=== PATIENT | male | born 1975 | race Two or more races ===

== ENCOUNTER 2025-07-29 23:48 | Emergency (ER) | payer MEDICAID, SELFPAY ==
[2025-07-29 23:55] VITALS: BP 160/99; PULSE 103; RESP 18; TEMP 36.9; O2SAT 99
--- NOTE | 2025-07-30 00:34 | EKG_ITS ---
[facility] [place] [facility] Test Date: 2025-07-30 Pat Name: BRITTNEY TAYLOR Department: Room: - Gender: Male Behavior Interventionist: : 1975 Requested By: Margaret Cat Order Number: [id number] Reading MD: Margaret Cat Measurements Intervals [place] Rate: 100 P: 72 NE: 155 QRS: 74 QRSD: 84 T: 75 QT: 308 QTc: 397 Interpretive Statements SINUS TACHYCARDIA NONSPECIFIC T-WAVE ABNORMALITY ABNORMAL RHYTHM ECG No previous ECG available for comparison /[id number]/[email or web address]/[id number]
--- NOTE | 2025-07-30 00:34 | XR_ITS ---
EXAMINATION: PA chest single view TECHNIQUE: Upright PA chest single view Date and time: July 30, 2025, 0230 hours INDICATION: Coughing shortness of breath today. FINDINGS: Normal heart size. Lungs are clear. Intact osseous structures IMPRESSION: No active disease
--- NOTE | 2025-07-30 00:34 | PD.EDRME ---
Rapid Medical Screening Exam RME Arrival date/time: 07/29/25 23:48 This is a case of 49-year-old male with history of diabetes hypertension came in with chest pain history of present illness started 1 week prior to arrival in the emergency room patient have cough and nasal congestion persistence of the symptoms now with chest pain shortness of breath this patient decided to start consulted in the emergency room Chief Complaint: Flu Like Symptoms Time Seen by Provider: 07/30/25 00:03 Vital signs: Vital Signs Temperature 98.5 F 07/29/25 23:55 Pulse Rate 103 H 07/29/25 23:55 Respiratory Rate 18 07/29/25 23:55 Blood Pressure 160/99 H 07/29/25 23:55 Pulse Oximetry (%) 99 07/29/25 23:55 Oxygen Delivery Method Room Air 07/29/25 23:55 Exam: Normal rate regular rhythm no murmur clear breath sounds Clinical Impression: Chest pain
[2025-07-30 01:15] LABS: Collection Type, Urine Voided
[2025-07-30 01:20] LABS: Basophils # (Auto) 0.0 Thou/mm3 (0.0-0.2); Basophils % (Auto) 0 % (0-2.5); Eosinophils # (Auto) 0.2 Thou/mm3 (0.0-0.5); Eosinophils % (Auto) 2 % (0-10); Hematocrit 42.9 % (41.0-53.0); Hemoglobin 14.1 g/dL (13.5-16.0); Immature Granulocytes Auto 0.02 Thou/mm3 (0.00-0.00); Lymphocytes # (Auto) 1.3 Thou/mm3 (1.0-4.8); Lymphocytes % (Auto) 16 % (10-50); Mean Corpuscular HGB Conc 32.9 g/dl (31.0-37.0); Mean Corpuscular Hemoglobin 28.5 pg (25.0-35.0); Mean Corpuscular Volume 87 fL (80-100); Monocytes # (Auto) 0.6 Thou/mm3 (0.0-0.8); Monocytes % (Auto) 8 % (0-12); Neutrophils # (Auto) 5.6 Thou/mm3 (1.8-7.7); Neutrophils % (Auto) 73 % (37-80); Nucleated Red Blood Cell # 0.00 Thou/mm3 (0.00-0.00); Nucleated Red Blood Cell % 0 /100 WBC (0); Platelet Count 216 Thou/mm3 (140-440); RDW Standard Deviation 42.9 fL (35.1-43.9); Red Blood Count 4.95 Miln/mm3 (4.50-5.90); White Blood Count 7.7 Thou/mm3 (3.8-10.6)
[2025-07-30 01:33] LABS: Bacteria,Urine Rare; Bilirubin,Urine Negative (Negative); Blood,Urine Negative (Negative); Clarity,Urine Clear (Clear/Hazy); Color,Urine Yellow (Lt Yel-Yel); Glucose, Urine 4+ (Negative); Ketones,Urine Negative (Negative); Leukocyte Esterase,Urine Negative (Negative); Nitrite,Urine Negative (Negative); PH,Urine 6.0 (5.0-7.0); Protein,Urine Negative (Neg - Trace); RBC,Urine 1 /hpf (0-3); Specific Gravity,Urine 1.030 (1.001-1.035); Squamous Epithelial Cell,Urine 2 /hpf (0-5); Urobilinogen,Urine 4.0 mg/dL (0.0-1.0); WBC,Urine 1 /hpf (0-5)
[2025-07-30 01:38] LABS: B-Type Natriuretic Peptide 60 pg/mL (0-100)
[2025-07-30 01:42] LABS: Alanine Aminotransferase 21 U/L (10-49); Albumin, Serum 4.2 gm/dL (3.5-5.0); Albumin/Globulin Ratio 1.6 (1.2-2.2); Alkaline Phosphatase 105 U/L (46-116); Anion Gap 9 (7-16); Aspartate Amino Transferase 23 U/L (0-34); BUN/Creatinine Ratio 7 Ratio (12-20); Bilirubin,Total 0.5 mg/dL (0.3-1.2); Blood Urea Nitrogen 7 mg/dL (9-23); Calcium 8.8 mg/dL (8.3-10.6); Calcium (Corrected) 8.8 mg/dL (8.5-10.1); Carbon Dioxide 28.3 mMol/L (20.0-31.0); Chloride 105 mMol/L (98-107); Creatinine (Component) 1.0 mg/dL (0.6-1.3); Globulin 2.6 gm/dL (2.3-3.5); Glucose 232 mg/dL (74-106); Osmolality,Calculated 288 (275-295); Potassium 4.1 mMol/L (3.4-5.1); Sodium 142 mMol/L (136-145); Total Protein 6.8 gm/dL (5.7-8.2); Troponin I < 0.020 ng/mL (0.0-0.045); eGFR > 60 See Note
[2025-07-30 02:53] VITALS: BP 178/107; PULSE 98; RESP 20; TEMP 37.3; O2SAT 99
--- NOTE | 2025-07-30 02:54 | PD.EDCHEST ---
ED Chest Pain RME/HPI General Chief Complaint: Flu Like Symptoms Stated Complaint: BODYACHES,COUGH Time Seen by Provider: 07/30/25 00:03 Arrival date/time: 07/29/25 23:48 This is a case of 49-year-old male with history of diabetes hypertension came in with chest pain history of present illness started 1 week prior to arrival in the emergency room patient have cough and nasal congestion persistence of the symptoms now with chest pain shortness of breath this patient decided to start consulted in the emergency room Limitations: no limitations RME / HPI RME / HPI narrative: 07/29/25 23:48 This is a case of 49-year-old male with history of diabetes hypertension came in with chest pain history of present illness started 1 week prior to arrival in the emergency room patient have cough and nasal congestion persistence of the symptoms now with chest pain shortness of breath this patient decided to start consulted in the emergency room Exam: Normal rate regular rhythm no murmur clear breath sounds Impression: Chest pain Related Data Previous Rx's ?Medication ?Instructions ?Recorded albuterol sulfate 90 mcg/actuation 1 puff inhalation Q4H PRN 07/30/25 aerosol inhaler (Ventolin HFA) shortness of breath or wheezing #8.5 grams benzonatate 200 mg capsule 200 mg PO BID PRN cough #20 caps 07/30/25 oseltamivir 75 mg capsule (Tamiflu) 75 mg PO BID 5 days #10 caps 07/30/25 Allergies Allergy/AdvReac Type Severity Reaction Status Date / Time No Known Allergies Allergy Verified 07/29/25 23:49 Review of Systems Review of Systems Systems Reviewed: All systems reviewed, normal except as documented Past Medical History Past Medical History CARDIAC: Negative Congestive Heart Failure RESPIRATORY: Negative Chronic Obstructive Pulmonary Disease (COPD) GENITOURINARY: Negative Renal Disease ENDOCRINE: Positive Diabetes Mellitus Type 2; Negative Diabetes Mellitus Type 1 Social History SMOKING STATUS: Never smoker SUBSTANCE USE: methamphetamine (Almost daily) ED Exam General Limitations: Present no limitations General appearance: Present alert, in no apparent distress and other (Patient is awake alert oriented not in distress nontoxic looking well-hydrated well-nourished) Head Head exam: Present atraumatic, normocephalic and normal inspection Eye Eye exam: Present normal appearance, PERRL and EOMI ENT ENT exam: Present normal exam, normal oropharynx, mucous membranes moist and other (HEENT exam is normal and unremarkable) Neck Neck exam: Present normal inspection, full ROM, trachea midline and other (Negative for meningeal sign); Absent tenderness, meningismus, lymphadenopathy or thyromegaly Chest Chest inspection: Present normal inspection and symmetric chest wall rise; Absent tenderness Respiratory Respiratory exam: Present normal lung sounds bilaterally and wheezes (Wheezing both lower lung field no crackles no rales no retraction no stridor); Absent respiratory distress, stridor, accessory muscle use or prolonged expiratory phase Cardiovascular Cardiovascular exam: Present regular rate, normal rhythm and normal heart sounds; Absent bradycardia, tachycardia, irregular rhythm, systolic murmur or diastolic murmur Abdominal Exam Abdominal exam: Present soft and normal bowel sounds Extremities Exam Extremities exam: Present normal inspection and full ROM Back Exam Back exam: Present normal inspection and full ROM Neurological Exam Neurological exam: Present alert, oriented X3, CN II-XII intact, normal gait and reflexes normal; Absent motor sensory deficit Psychiatric Psychiatric exam: Present normal affect and normal mood Skin Skin exam: Present warm, dry, intact, normal color and other (Excellent skin turgor) Course Quality Measures none Orders Category Date Time Status Bedside COVID-19 Antigen Test NOW Care 07/29/25 23:51 Active Bedside Influenza A&B Antigen Test NOW Care 07/29/25 23:58 Completed EKG (ED ONLY) *Do not use* NOW Care 07/30/25 00:34 Completed EKG (ED Only) Stat Exams 07/30/25 00:34 Draft XR chest 1V Stat Exams 07/30/25 00:34 Taken BNP [B-Type Natriuretic Peptide] Stat Lab 07/30/25 00:58 Completed CBC Stat Lab 07/30/25 00:58 Completed CMP [Comprehensive Metabolic Panel] Stat Lab 07/30/25 00:58 Completed Troponin I Stat Lab 07/30/25 00:58 Completed Urinalysis Stat Lab 07/30/25 00:45 Completed Albuterol/Ipratr Rt Margo [Duoneb Rt Margo] Med 07/30/25 02:45 Discontinued 3 ml INH X1 ONE cloNIDine HCL [Catapres] Med 07/30/25 02:55 Once 0.2 mg PO X1 ONE dexAMETHasone INJ [Decadron Inj] Med 07/30/25 02:45 Discontinued 10 mg IM X1 ONE Vital Signs Vital signs: Vital Signs Temperature 98.5 F 07/29/25 23:55 Pulse Rate 103 H 07/29/25 23:55 Respiratory Rate 18 07/29/25 23:55 Blood Pressure 160/99 H 07/29/25 23:55 Pulse Oximetry (%) 99 07/29/25 23:55 Oxygen Delivery Method Room Air 07/29/25 23:55 Oxygen saturation is 99% in room air normal patient BP was 160/90 9 repeat was 178/107 clonidine 0.2 was given repeat after 30 minutes and noted to be 155/95 Chest Pain MDM Narrative MDM Narrative:: This is a case of 49-year-old male with history of diabetes hypertension came in with chest pain history of present illness started 1 week prior to arrival in the emergency room patient have cough and nasal congestion persistence of the symptoms now with chest pain shortness of breath this patient decided to start consulted in the emergency room physical examination patient is awake alert oriented not in distress nontoxic looking well-hydrated well-nourished vital signs patient BP is slightly elevated 160/90 and we repeated the blood pressure again it was 178 107 patient is not tachycardic not tachypneic afebrile and not hypoxic oxygen saturation is 99% HEENT exam is normal and unremarkable negative meningeal sign excellent skin turgor wheezing both lower lung field no crackles no rales no retraction no stridor heart normal rate regular rhythm no murmur the rest of the physical examination and neurological exam is normal and unremarkable blood test showed no leukocytosis no anemia kidney and liver function is normal no electrolyte imbalance urinalysis normal troponin and BNP were normal patient EKG is sinus rhythm no ST elevation no depression chest x-ray is normal read by patient is influenza A positive COVID-negative patient will be treated with Tamiflu for influenza A patient was given breathing treatment here in the emergency room and was discharged with Ventolin unable to give steroid because the blood sugar was 235 and the patient was also given cough medication patient was advised to follow-up with PCP in 2 days for reevaluation and to continue to monitor his blood pressure and blood sugar patient will continue to take his medication for hypertension and diabetes strict ER return for any abnormal result for any worsening symptoms or any emergent concern return precaution in the ER is advised at the time of exam no signs and symptoms of cardiac origin patient chest pain is because of acute bronchitis Patient was discharged with comfortable condition walking with stable gait. Patient verbalized no further complains explained diagnosis and answered patient question. Patient is comfortable with the proposed management plan including the need to follow up with his/her primary care physician and any specialist if applicable Discussed patient for any urgent condition or worsening sx, He/She needed to go to emergency room immediately or call 911. Patient acknowledge the responsibility to follow up as instructed and to monitor her/his symptoms. For any persistence of the symptoms for more than 3-5 days return precaution advised. Discussed the result of the test and was given printed discharge instruction Patient data External records reviewed:: [facility] previous records Clinical information provided by:: patient Social determinants that could affect healthcare access:: none Patient has the following chronic illnesses:: None How is presenting disease/condition affected by chronic disease/condition?: no chronic disease Evaluation data The following diagnostics were reviewed and interpreted by me:: lab results and radiology exam(s) Lab and/or radiology exams considered but not ordered:: Reviewed Interpretation Summary: Reviewed Medications / Prescriptions Medications or Prescriptions considered but not ordered:: Given Medication administrations:: Medication Administration History Clonidine (Clonidine Hcl 0.1 Mg Tablet) 0.2 mg PO X1 ONE Stop: 07/30/25 02:56 Discontinued Medications Albuterol/Ipratropium (Albuterol/Ipratropium (Duoneb) Rt Margo 3 Ml Nebu) 3 ml INH X1 ONE Stop: 07/30/25 02:46 Dexamethasone Sodium Phosphate (Dexamethasone Sod Phos Inj 10 Mg/Ml Vial) 10 mg IM X1 ONE Stop: 07/30/25 02:46 Given Consultations Consultation(s) initiated? (list below): No Diagnosis Chest Pain Differential Diagnosis: atypical chest pain, costochondritis and chest pain Most likely diagnosis given after review of the tests above:: Chest pain of unknown etiology acute bronchitis influenza A Admission Indicated Admission indicated?: not indicated Explain why admission is indicated or not indicated:: Not indicated Admission Request Was there a request for admission?: No Admission Attestation Admission request attestation: Not indicated Disposition Plan Disposition Plan: Discharge Discharge Attestation Discharge Attestation: The patient and all family members were given an opportunity to ask questions and understood the discharge instructions. Discharge instructions specifically effects, indications for sooner follow up or return to the emergency department, and the expected course of current diagnosis. Patient condition: Stable Discharge Plan Plan Patient Disposition: HOME (Self Care) Patient condition on transfer: Stable Prescriptions/Referrals Prescriptions/Med Rec: New oseltamivir [Tamiflu] 75 mg capsule 75 mg PO BID 5 Days Qty: 10 0RF benzonatate 200 mg capsule 200 mg PO BID PRN (Reason: cough) Qty: 20 0RF albuterol sulfate [Ventolin HFA] 90 mcg/actuation HFA aerosol inhaler 1 puff inhalation Q4H PRN (Reason: shortness of breath or wheezing) Qty: 8.5 0RF Rx Instructions: Please give Referrals: Howard Lau MD [Primary Care Provider, Family Practice] - In 1 week Problem List Clinical Impression: Influenza A, Acute bronchitis, Chest pain of unknown etiology, Uncontrolled diabetes mellitus Patient/Caregiver Discharge Instructions Education Materials: Acute Bronchitis, Diabetes and Heart Disease, ED Chest Pain, Uncertain Cause, ED Influenza (Adult) Additional Instructions: It is very important to follow-up with the hydraulics engineer for further evaluation and treatment of chest pain for possible echocardiogram stress test and Holter monitor follow-up with your primary care physician in 2 days for reevaluation at this time you have influenza A your chest x-ray is normal you do not have pneumonia but you have acute bronchitis you do not need any antibiotic at this time you need to start Tamiflu increase oral hydration Pedialyte Gatorade for hydration is advised for any worsening symptoms or any emergent concern return precaution in the emergency room immediately follow-up with your primary care physician in 2 days to be referred to hydraulics engineer for further evaluation and treatment continue to monitor your blood sugar at home if your blood sugar greater than 250 or less than 80 return to the emergency room immediately or call 911 continue to take your medication for diabetes Print Language: Burkinan Stand Alone Forms: Macrina Award Info., Patient Portal Info Letter PA/GRAIN INSPECTOR Supervising Physician PA/GRAIN INSPECTOR Supervising Physician: Dr. Ballesteros
[2025-07-30 02:58] VITALS: BP 178/107; PULSE 98
[2025-07-30] MEDS: ALBUTEROL/IPRATROPIUM (Duoneb) RT SOL 3 ML NEBU INH (03:06)
[2025-07-30 03:07] VITALS: PULSE 104; RESP 20; O2SAT 98
== END 2025-07-30 03:27 | disposition home or self-care (01) ==
PROVIDERS: Nurse Practitioner Family; Emergency Provider Emergency Medicine; PCP Family Medicine
DX: J10.1 Influenza due to other identified influenza virus with other respiratory manifestations (principal); E11.65 Type 2 diabetes mellitus with hyperglycemia; I10 Essential (primary) hypertension
CPT/HCPCS: 36415; 71045; 80053; 81001; 83880; 84484; 85025; 87502; 87635; 93005; 94640; 99284; A9270